=== PATIENT | female | born 1960 | race Caucasian/White ===

== ENCOUNTER 2019-12-23 08:50 | Emergency (ER) | payer OTHER, SELFPAY ==
[2019-12-23 09:10] VITALS: BP 160/86; PULSE 73; RESP 19; TEMP 36.7; O2SAT 97; BMI 31.0
--- NOTE | 2019-12-23 09:43 | ED_ITS ---
HPI - Ear Problem General Chief complaint: Ear Stated complaint: both ears hurt/swims x2 days Time Seen by Provider: 12/23/19 09:17 Source: patient Mode of arrival: Ambulatory Limitations: no limitations History of Present Illness HPI Narrative: CC: Bilateral earaches HPI: The patient is a 59-year-old female who states that she has a spot full and that she has been swimming daily for the last 8 days. She states that she believes she has developed swimmer's ear with pain in her ears, left greater than right. She states that since Tuesday the last 2 tonight's she has been up unable to sleep because of pain and discomfort. She states that her ears feel as though they are swollen and water in her ears. She has had muffling hand decreased hearing. She denies any other sore throat or pain on swallowing. She has had no nasal congestion. She denies any significant allergies, nausea or vomiting. Her pain and discomfort is 5 to 7/10 in intensity. She has had no vertigo or dizziness. She has had no cough shortness breath or chest pain. She has had no abdominal pain. Related Data Previous Rx's Medication Instructions Recorded prednisone 40 mg PO AMCC 5 Days #0 tab 11/28/16 phenazopyridine [Pyridium] 200 mg PO TID #6 tab 11/30/16 sulfamethoxazole-trimethoprim 1 tab PO BID #10 tab 11/30/16 cyclobenzaprine 10 mg tablet See Rx Instructions PO TID PRN #30 09/24/19 tab ketorolac 10 mg PO Q6H PRN 5 Days tab 12/23/19 ofloxacin 3 - 5 drop EAR-BOTH BID 5 Days #10 12/23/19 ml tramadol [Ultram] 50 mg PO TID PRN #10 tab 12/23/19 Allergies Allergy/AdvReac Type Severity Reaction Status Date / Time morphine Allergy Mild HIVES, Verified 12/23/19 09:46 PRURITIS,URTICARIA Review of Systems Review of Systems Narrative: The patient's review of systems were all negative except for those m entioned in the history of present illness. Patient History Social History Smoking Status: Never smoker Smoking Status: Never smoker alcohol intake frequency: holidays/special occasions only Substance Use Type: does not use Exam Narrative Exam Narrative: PHYSICAL EXAM: CONSTITUTIONAL: Awake, Alert, Oriented, Coherent, Cooperative in NAD. Does not appear toxic or ill. HEAD: AT/NC EENT: PERRL, FROM of eyes, no discharge, no nystagmus EARS:No drainage from the ears, tympanic membranes are intact bilaterally. The right tympanic membrane is all quite with no light reflex. The distal external auditory canal is erythematous white and macerated. There is minimal tenderness to palpation over the tragus and tugging of the right auricle. Tugging of the left auricle causes pain and discomfort as well as palpation of the tragus causes significant pain and discomfort. The external auditory canal is swollen. Tympanic membrane is intact and appears quite in macerated. The external auditory canal is moist macerated and consistent with otitis externa. NOSE:No epistaxis or nasal drainage MOUTH:Oral mucosa is moist and pink, posterior pharynx is without erythema or exudate. NECK: Supple, no obvious JVD, Trachea is midline without stridor, no palpable LN. There is no tenderness to palpate over either mastoid processes pre or postauricular lymph nodes or anterior cervical chain and submandibular chain. SPINE: Palpationof the cervical, Thoracic, Lumbar or Sacral spine reveals no gross deformity or tenderness. No CVA tenderness. THORAX: No deformity, chest wall tenderness. LUNGS: Clear, symmetrical breath sounds without respiratory distress. HEART: Normal heart tones, regular rhythm and rate without murmur. ABDOMEN: Soft, non-tender, NEURO: Awake, alert, oriented, conversive, cranial nerves II-XII are symmetrical , moves all 4 extremities and is ambulatory. MENTAL HEALTH: Does not appear anxious or depressed. Initial Vital Signs Initial Vital Signs: Vital Signs Temperature 98.0 F 12/23/19 09:10 Pulse Rate 73 12/23/19 09:10 Respiratory Rate 19 12/23/19 09:10 Blood Pressure 160/86 H 12/23/19 09:10 Pulse Oximetry 97 12/23/19 09:10 Course Orders Ordered: Discontinued Medications Ketorolac Tromethamine (Toradol) 30 mg IM NOW ONE Stop: 12/23/19 09:35 Last Admin: 12/23/19 09:47 Dose: 30 mg Documented by: NEREYDA Ofloxacin (Floxin 0.3% Otic) 5 drops EAR-BOTH NOW ONE Stop: 12/23/19 09:35 Last Admin: 12/23/19 09:56 Dose: 5 drops Documented by: NEREYDA Vital Signs Vital signs: Vital Signs - 8 hr 12/23/19 09:10 Temperature 98.0 F Pulse Rate 73 Respiratory Rate 19 Blood Pressure 160/86 H Pulse Oximetry 97 Discharge Plan Departure Patient Disposition: Home Clinical Impression: Otalgia, bilateral Otitis externa Qualifiers: Otitis externa type: swimmer's ear Chronicity: acute Laterality: bilateral Qualified Code(s): H60.333 - Swimmer's ear, bilateral Discharge Date/Time: 12/23/19 10:08 Instructions: DI for Otitis Externa Activity Restrictions/Additional Instructions: 1. Follow-up with your primary care physician in 48-72 hours. 2. Apply the ear drops to your ears as prescribed for the next 5 days. Or until the ear pain results. 3. Use the Toradol 10 mg tablets every 6 hours for pain and discomfort. 4. Use the Ultram 50 mg 3 times a day as needed for a a rescue medication when the pain becomes so intolerable especially when trying to sleep at night. 5. If you develop worsening pain, fever, headache, feeling faint, progressive dizziness or disequilibrium you need to be re-evaluated. Prescriptions: New ofloxacin 0.3 % drops 3 - 5 drop EAR-BOTH BID 5 Days Qty: 10 RF: 0 ketorolac 10 mg tablet 10 mg PO Q6H PRN (Reason: pain) 5 Days RF: 0 tramadol [Ultram] 50 mg tablet 50 mg PO TID PRN (Reason: pain) Qty: 10 RF: 0 No Action prednisone 20 MG tablet 40 mg PO AMCC 5 Days Qty: 0 RF: 0 phenazopyridine [Pyridium] 200 MG tablet 200 mg PO TID Qty: 6 RF: 0 sulfamethoxazole-trimethoprim 800 MG/160 MG tablet 1 tab PO BID Qty: 10 RF: 0 cyclobenzaprine 10 mg tablet See Rx Instructions PO TID PRN (Reason: muscle spasm) Qty: 30 RF: 0 Referrals: Alonzo Fung MD [Primary Care Provider] -
[2019-12-23] MEDS: KETOROLAC 60 MG/2 ML VIAL 30 MG IM (09:47)
[2019-12-23] MEDS: OFLOXACIN 0.3% OTIC 5 ML 5 DROPS EAR-BOTH (09:56)
[2019-12-23 10:07] VITALS: BP 149/92; PULSE 65; RESP 16; O2SAT 97
== END 2019-12-23 10:08 | disposition home or self-care (01) ==
PROVIDERS: Emergency Provider Emergency Medicine; Family Provider Family Medicine; PCP Family Medicine
DX: H92.03 Otalgia, bilateral (principal); H60.333 Swimmer's ear, bilateral
CPT/HCPCS: 96372; 99283; J1885

== ENCOUNTER 2022-04-29 15:16 | Observation (INO) | payer OTHER, SELFPAY ==
[2022-04-29] VITALS (24 sets, daily range): BP systolic 136–201; BP diastolic 66–117; PULSE 54–72; RESP 16–33; TEMP 36.5–36.6; O2SAT 94–99; BMI 29.0; BMI 34.9
--- NOTE | 2022-04-29 16:02 | DI.RAD.S_ITS ---
PROCEDURE: XR CHEST 1V INDICATIONS: chest pain TECHNIQUE: One view of the chest was acquired. COMPARISON: [facility], , CHEST 2 VIEW, 01/29/2011, 16:06. FINDINGS: Surgical changes and devices: Cholecystectomy clips. Lungs and pleura: Lungs are clear. No pleural effusions or pneumothorax. Mediastinum: Mediastinal contours appear normal. Heart size is normal. Bones and chest wall: No suspicious bony lesions. Overlying soft tissues appear unremarkable. IMPRESSION: No acute cardiopulmonary abnormality. Dictated by: Chente Landin M.D. on 04/29/2022 at 18:07 Approved by: Chente Landin M.D. on 04/29/2022 at 18:08
[2022-04-29 16:25] LABS: Add Manual Diff / Slide Review NO; Basophils Absolute Auto 100 /uL (0-100); Basophils Percent Auto 1.5 % (0-2); Eosinophils Absolute Auto 200 /uL (0-450); Eosinophils Percent Auto 2.2 % (2-4); Hematocrit 43.9 % (36-46); Hemoglobin 15.1 g/dL (12.0-16.0); Lymphocytes Absolute Auto 3100 /uL (1100-4500); Lymphocytes Percent Auto 33.4 % (25-40); Mean Corpuscular HGB Conc 34.5 % (30-36); Mean Corpuscular Hemoglobin 29.6 PG (26-34); Mean Corpuscular Volume 85.8 fL (80-100); Monocytes Absolute Auto 600 /uL (0-900); Monocytes Percent Auto 6.5 % (3-14); Neutrophils Absolute Auto 5300 /uL (1500-7000); Neutrophils Percent Auto 56.4 % (50-75); Platelet Count 196 X10^3/uL (150-400); Red Blood Cell Count 5.11 X10^6/uL (4.0-5.2); Red Cell Distribution Width 12.9 % (11.6-14.8); White Blood Cell Count 9.4 X10^3/uL (4.5-11.0)
[2022-04-29 16:40] LABS: Alanine Aminotransferase 36 IU/L (<35); Albumin Globulin Ratio 1.1 (1.0-2.8); Alkaline Phosphatase 82 U/L (38-126); Aspartate Aminotransferase 36 IU/L (14-36); BUN Creatinine Ratio 22.6 (6-22); Bilirubin Total 0.4 mg/dL (0.2-1.3); Blood Urea Nitrogen 14 mg/dL (7-17); Carbon Dioxide 28 mmol/L (22-32); Chloride 100 mmol/L (98-107); Creatine Kinase 57 U/L (30-135); Estimated Glomerular Filt Rate > 60 mL/min (>60); Globulin 3.7 g/dL (1.7-4.1); Glucose 222 mg/dL (80-110); HEMOLYSIS 18 (0-50); Lipase 107 U/L (23-300); Magnesium 1.7 mg/dL (1.6-2.3); Potassium 4.4 mmol/L (3.4-5.1); Sodium 137 mmol/L (137-145); Total Protein 7.7 g/dL (6.3-8.2)
[2022-04-29 16:50] LABS: Troponin I < 0.012 ng/mL (0.01-0.034)
--- NOTE | 2022-04-29 19:01 | ED_ITS ---
HPI - Chest Pain General Chief Complaint: Chest Pain Stated Complaint: CHEST PAIN Time Seen by Provider: 04/29/22 18:04 Source: patient and family Mode of arrival: Family Vehicle Limitations: no limitations History of Present Illness HPI narrative: Patient here with . Has had off and on left-sided chest pressure discomfort for the past 2 months but worsening in the past 2 weeks and worsened last 2 days. Feels short of breath. No nausea or sweating. It occurs at rest as well as with exertion. Never had stress test in the past. Does not smoke. Last time she saw primary care Dr. Fung was 5 years ago. However since then has retired. Patient did call office to make appointment and is not available until 2 more weeks. Is not on any medications. No primary family history of coronary artery disease. At worse 6/10 chest discomfort. Currently 10/11. Related Data Home Medications Medication Instructions Recorded Confirmed No Known Home Medications 04/29/22 04/29/22 Allergies Allergy/AdvReac Type Severity Reaction Status Date / Time morphine Allergy Mild HIVES, Verified 04/29/22 16:02 PRURITIS,URTICARIA Review of Systems Review of Systems Narrative: GENERAL: Denies chills, fatigue, malaise, fever, sweats. HEENT: Denies sinus pain, ear pain, sore throat RESPIRATORY: Positive dyspnea, negative cough CARDIOVASCULAR: Positive chest pain, negative palpitations GASTROINTESTINAL: Denies nausea, vomiting, abdominal pain : Denies dysuria, frequency, hematuria MUSCULOSKELETAL: denies muscle or bony pain SKIN: Denies rash, skin lesions NEUROLOGIC: Denies weakness, numbness ROS Unobtainable: All systems reviewed & are unremarkable except as noted in HPI and below Patient History Social History household members: spouse Smoking Status: Never smoker alcohol intake: current Smoking Status: Never smoker alcohol intake frequency: holidays/special occasions only Substance Use Type: does not use Exam Narrative Exam Narrative: GENERAL: in no distress, not toxic not dyspneic HEAD: Normocephalic. EYES: Pupils equal round No scleral icterus. ENT: Mucous membranes moist. NECK: Trachea midline. CARDIOVASCULAR: Regular rate and rhythm without murmurs RESPIRATORY: Clear to auscultation. Breath sounds equal bilaterally. No wheezes, rales, or rhonchi. GASTROINTESTINAL: Abdomen soft, non-tender EXTREMITIES: No gross deformities. BACK: No flank tenderness. NEURO: AOx4. SKIN: Warm and dry PSYCH: Not anxious, is cooperative Initial Vital Signs Initial Vital Signs: Vital Signs Temperature 97.7 F 04/29/22 15:50 Pulse Rate 62 04/29/22 15:50 Respiratory Rate 20 04/29/22 15:50 Blood Pressure 181/117 H 04/29/22 15:50 Pulse Oximetry 98 04/29/22 15:50 Oxygen Delivery Method 04/29/22 15:50 Course Course Course Narrative: No new issues during course of stay Decision to Admit Date: 04/29/22 Decision to Admit time: 19:04 Orders Ordered: ED Orders 04/29/22 16:02 XR chest 1V Stat EKG-12 Lead Stat 04/29/22 16:12 Complete Blood Count AUTO DIFF Stat Comprehensive Metabolic Panel Stat Lipase Stat Lipid Panel Urgent Magnesium Stat Troponin & CK Cardiac Panel Stat 04/29/22 19:10 COVID19 -Nasal RAPID/Pre-Proc Stat 04/29/22 23:00 Troponin I Q6H 04/30/22 05:00 Troponin I Q6H Acetaminophen (Acetaminophen 325 Mg Tablet) 650 mg PO Q6H PRN PRN Reason: Fever/Mild Pain (1-3) Aspirin (Aspirin Ec 81 Mg Tablet) 81 mg PO DAILY ADWOA Enoxaparin Sodium (Enoxaparin 40 Mg/0.4 Ml Syringe) 40 mg SUBCUT DAILY ADWOA Morphine Sulfate (Morphine 2 Mg/Ml Inj) 2 mg IV Q5MIN PRN PRN Reason: Chest Pain Naloxone HCl (Naloxone 0.4 Mg/Ml Vial) 0.2 mg IV Q2MIN PRN PRN Reason: Opiate Reversal Nitroglycerin (Nitroglycerin 0.4 Mg Sl Tab) 0.4 mg SL [id number] PRN PRN Reason: Chest Pain Ondansetron HCl (Ondansetron 4 Mg Odt) 4 mg PO Q8HR PRN PRN Reason: Nausea And Vomiting Discontinued Medications Aspirin (Aspirin 81 Mg Chew Tab) 324 mg PO NOW ONE Stop: 04/29/22 19:01 Last Admin: 04/29/22 19:09 Dose: 324 mg Documented By: DAVID Sodium Chloride (Normal Saline 0.9%) 1,000 mls @ 1,000 mls/hr IV BOLUS ONE Stop: 04/29/22 20:54 Last Infusion: 04/29/22 21:31 Dose: 0 mls/hr Documented By: Admin: 04/29/22 20:18 Dose: 1,000 mls/hr Documented By: DAVID Nitroglycerin (Nitroglycerin Oint 1 Inch/Gm Oint...G.) 0.5 inch TOP NOW ONE Stop: 04/29/22 19:01 Last Admin: 04/29/22 19:16 Dose: 0.5 inch Documented By: DAVID Reevaluation(s) Reevaluation #1: Reviewed with patient and results. They agree for admission for stress test and echocardiogram. Time: 19:04 Reevaluation #2: Chest pain-free after nitro paste. Has a little blurry vision but no headache. IV fluids ordered. Time: 19:56 Consultations Consultation #1: Spoke with hospitalist, Babs Gonsales, will admit patient Time: 19:56 Vital Signs Vital signs: Vital Signs - 8 hr 04/29/22 15:50 04/29/22 17:52 04/29/22 17:53 Temperature 97.7 F 97.8 F Pulse Rate 62 58 L Respiratory Rate 20 19 Blood Pressure 181/117 H 161/78 H Pulse Oximetry 98 98 Oxygen Delivery Method Room Air 04/29/22 17:53 04/29/22 19:16 04/29/22 18:00 Temperature Pulse Rate 59 L 62 Respiratory Rate 16 Blood Pressure 201/87 H 155/77 H Pulse Oximetry 99 Oxygen Delivery Method 04/29/22 18:00 04/29/22 18:30 04/29/22 19:00 Temperature Pulse Rate 67 57 L 65 Respiratory Rate 20 33 H Blood Pressure Pulse Oximetry 98 98 99 Oxygen Delivery Method Room Air Room Air Room Air 04/29/22 19:17 04/29/22 19:17 04/29/22 19:20 Temperature Pulse Rate 56 L 59 L Respiratory Rate 18 21 Blood Pressure 201/87 H Pulse Oximetry 97 98 Oxygen Delivery Method Room Air Room Air 04/29/22 19:20 04/29/22 19:26 04/29/22 19:26 Temperature Pulse Rate 62 Respiratory Rate 25 H Blood Pressure 197/88 H 184/80 H Pulse Oximetry 96 Oxygen Delivery Method Room Air 04/29/22 19:30 04/29/22 19:30 04/29/22 19:36 Temperature Pulse Rate 68 Respiratory Rate 22 Blood Pressure 159/70 H 153/70 H Pulse Oximetry 97 Oxygen Delivery Method Room Air 04/29/22 19:36 04/29/22 19:41 04/29/22 19:41 Temperature Pulse Rate 54 L 54 L Respiratory Rate 18 24 Blood Pressure 152/67 H Pulse Oximetry 97 96 Oxygen Delivery Method Room Air Room Air 04/29/22 19:45 04/29/22 19:45 04/29/22 19:50 Temperature Pulse Rate 55 L 55 L Respiratory Rate 24 Blood Pressure 138/66 Pulse Oximetry 97 97 Oxygen Delivery Method Room Air Room Air 04/29/22 19:50 04/29/22 19:55 04/29/22 19:55 Temperature Pulse Rate 55 L Respiratory Rate 24 Blood Pressure 151/72 H 136/67 Pulse Oximetry 97 Oxygen Delivery Method Room Air MDM - Chest Pain Differential Diagnosis Differential diagnosis: Likely stable angina, unstable angina pectoris, atypical chest pain, st elevation myocardial infarction and chest pain Lab Data Result diagrams: 04/29/22 16:12 04/29/22 16:12 Labs: Lab Results 04/29/22 04/29/22 04/29/22 Range/Units 16:12 16:12 16:12 WBC 9.4 (4.5-11.0) X10^3/uL RBC 5.11 (4.0-5.2) X10^6/uL Hgb 15.1 (12.0-16.0) g/dL Hct 43.9 (36-46) % MCV 85.8 (80-100) fL MCH 29.6 (26-34) PG MCHC 34.5 (30-36) % RDW 12.9 (11.6-14.8) % Plt Count 196 (150-400) X10^3/uL Neut % (Auto) 56.4 (50-75) % Lymph % (Auto) 33.4 (25-40) % [place] % (Auto) 6.5 (3-14) % Eos % (Auto) 2.2 (2-4) % Baso % (Auto) 1.5 (0-2) % Neut # (Auto) 5300 (4307-1646) /uL Lymph # (Auto) 3100 (0348-0280) /uL [place] # (Auto) 600 (0-900) /uL Eos # (Auto) 200 (0-450) /uL Baso # (Auto) 100 (0-100) /uL Sodium 137 (137-145) mmol/L Potassium 4.4 (3.4-5.1) mmol/L Chloride 100 (98-107) mmol/L Carbon Dioxide 28 (22-32) mmol/L BUN 14 (7-17) mg/dL Creatinine 0.62 (0.52-1.04) mg/dL Estimated GFR > 60 (>60) mL/min BUN/Creatinine Ratio 22.6 H (6-22) Glucose 222 H (80-110) mg/dL Hemoglobin A1c (4.0-6.0) % Calcium 9.0 (8.4-10.2) mg/dL Magnesium 1.7 (1.6-2.3) mg/dL Total Bilirubin 0.4 (0.2-1.3) mg/dL AST 36 (14-36) IU/L ALT 36 H (<35) IU/L Alkaline Phosphatase 82 (38-126) U/L Total Creatine Kinase 57 (30-135) U/L CK-MB (CK-2) TNP CK-MB (CK-2) Rel Index TNP Troponin I < 0.012 (0.01-0.034) ng/mL NT-Pro-B Natriuret Pep (<125) pg/mL Total Protein 7.7 (6.3-8.2) g/dL Albumin 4.0 (3.5-5.0) g/dL Globulin 3.7 (1.7-4.1) g/dL Albumin/Globulin Ratio 1.1 (1.0-2.8) Triglycerides 146 (35-150) mg/dL Cholesterol 192 (140-199) mg/dL LDL Cholesterol, Calc 112 H (<100) mg/dL HDL Cholesterol 51 (40-60) mg/dL Lipase 107 (23-300) U/L Urine Color Urine Appearance Urine pH (4.5-8.0) Ur Specific [place] (1.000-1.035) Urine Protein (Negative) Urine Glucose (UA) (Negative) g/dL Urine Ketones (NEGATIVE) Urine Occult Blood (Negative) Urine Nitrate (Negative) Urine Bilirubin (NEGATIVE) Urine Urobilinogen (0.2) E.U./dL Ur Leukocyte Esterase (NEGATIVE) Urine RBC (0-5/HPF) Urine WBC (0-5/HPF) Urine Bacteria (None) Ur Culture Indicated? SARS-CoV-2 (PCR) (Negative) 04/29/22 04/29/22 04/29/22 Range/Units 16:12 16:12 19:10 WBC (4.5-11.0) X10^3/uL RBC (4.0-5.2) X10^6/uL Hgb (12.0-16.0) g/dL Hct (36-46) % MCV (80-100) fL MCH (26-34) PG MCHC (30-36) % RDW (11.6-14.8) % Plt Count (150-400) X10^3/uL Neut % (Auto) (50-75) % Lymph % (Auto) (25-40) % [place] % (Auto) (3-14) % Eos % (Auto) (2-4) % Baso % (Auto) (0-2) % Neut # (Auto) (6386-0997) /uL Lymph # (Auto) (6170-4784) /uL [place] # (Auto) (0-900) /uL Eos # (Auto) (0-450) /uL Baso # (Auto) (0-100) /uL Sodium (137-145) mmol/L Potassium (3.4-5.1) mmol/L Chloride (98-107) mmol/L Carbon Dioxide (22-32) mmol/L BUN (7-17) mg/dL Creatinine (0.52-1.04) mg/dL Estimated GFR (>60) mL/min BUN/Creatinine Ratio (6-22) Glucose (80-110) mg/dL Hemoglobin A1c 10.2 H (4.0-6.0) % Calcium (8.4-10.2) mg/dL Magnesium (1.6-2.3) mg/dL Total Bilirubin (0.2-1.3) mg/dL AST (14-36) IU/L ALT (<35) IU/L Alkaline Phosphatase (38-126) U/L Total Creatine Kinase (30-135) U/L CK-MB (CK-2) CK-MB (CK-2) Rel Index Troponin I (0.01-0.034) ng/mL NT-Pro-B Natriuret Pep 234 H (<125) pg/mL Total Protein (6.3-8.2) g/dL Albumin (3.5-5.0) g/dL Globulin (1.7-4.1) g/dL Albumin/Globulin Ratio (1.0-2.8) Triglycerides (35-150) mg/dL Cholesterol (140-199) mg/dL LDL Cholesterol, Calc (<100) mg/dL HDL Cholesterol (40-60) mg/dL Lipase (23-300) U/L Urine Color Urine Appearance Urine pH (4.5-8.0) Ur Specific [place] (1.000-1.035) Urine Protein (Negative) Urine Glucose (UA) (Negative) g/dL Urine Ketones (NEGATIVE) Urine Occult Blood (Negative) Urine Nitrate (Negative) Urine Bilirubin (NEGATIVE) Urine Urobilinogen (0.2) E.U./dL Ur Leukocyte Esterase (NEGATIVE) Urine RBC (0-5/HPF) Urine WBC (0-5/HPF) Urine Bacteria (None) Ur Culture Indicated? SARS-CoV-2 (PCR) Negative (Negative) 04/29/22 Range/Units 19:20 WBC (4.5-11.0) X10^3/uL RBC (4.0-5.2) X10^6/uL Hgb (12.0-16.0) g/dL Hct (36-46) % MCV (80-100) fL MCH (26-34) PG MCHC (30-36) % RDW (11.6-14.8) % Plt Count (150-400) X10^3/uL Neut % (Auto) (50-75) % Lymph % (Auto) (25-40) % [place] % (Auto) (3-14) % Eos % (Auto) (2-4) % Baso % (Auto) (0-2) % Neut # (Auto) (1304-5671) /uL Lymph # (Auto) (4535-8146) /uL [place] # (Auto) (0-900) /uL Eos # (Auto) (0-450) /uL Baso # (Auto) (0-100) /uL Sodium (137-145) mmol/L Potassium (3.4-5.1) mmol/L Chloride (98-107) mmol/L Carbon Dioxide (22-32) mmol/L BUN (7-17) mg/dL Creatinine (0.52-1.04) mg/dL Estimated GFR (>60) mL/min BUN/Creatinine Ratio (6-22) Glucose (80-110) mg/dL Hemoglobin A1c (4.0-6.0) % Calcium (8.4-10.2) mg/dL Magnesium (1.6-2.3) mg/dL Total Bilirubin (0.2-1.3) mg/dL AST (14-36) IU/L ALT (<35) IU/L Alkaline Phosphatase (38-126) U/L Total Creatine Kinase (30-135) U/L CK-MB (CK-2) CK-MB (CK-2) Rel Index Troponin I (0.01-0.034) ng/mL NT-Pro-B Natriuret Pep (<125) pg/mL Total Protein (6.3-8.2) g/dL Albumin (3.5-5.0) g/dL Globulin (1.7-4.1) g/dL Albumin/Globulin Ratio (1.0-2.8) Triglycerides (35-150) mg/dL Cholesterol (140-199) mg/dL LDL Cholesterol, Calc (<100) mg/dL HDL Cholesterol (40-60) mg/dL Lipase (23-300) U/L Urine Color Yellow Urine Appearance Sl cloudy Urine pH 6.0 (4.5-8.0) Ur Specific [place] 1.015 (1.000-1.035) Urine Protein Negative (Negative) Urine Glucose (UA) Trace H (Negative) g/dL Urine Ketones Negative (NEGATIVE) Urine Occult Blood Trace-intact (Negative) Urine Nitrate Positive H (Negative) Urine Bilirubin Negative (NEGATIVE) Urine Urobilinogen 0.2 (0.2) E.U./dL Ur Leukocyte Esterase 1+ H (NEGATIVE) Urine RBC 5-10/hpf H (0-5/HPF) Urine WBC 5-10/hpf H (0-5/HPF) Urine Bacteria Many (>30) H (None) Ur Culture Indicated? Specimen cultured SARS-CoV-2 (PCR) (Negative) Imaging Data Chest x-ray: Radiologist's Impression: [address] [id number] ReportSigned Patient: Katelyn Pascal CMR#: [id number]: [id number]:[id number]/Sex: 62 / FDate of Service: 04/29/22Loc: EDAccession Number: [id number] Procedure: XR chest 1V Ordering Provider: Isabel Hyde D.O. PROCEDURE: XR CHEST 1V INDICATIONS: chest pain TECHNIQUE: One view of the chest was acquired. COMPARISON: [facility], CHEST 2 VIEW, 01/29/2011, 16:06. FINDINGS: Surgical changes and devices: Cholecystectomy clips. Lungs and pleura: Lungs are clear. No pleural effusions or pneumothorax. Mediastinum: Mediastinal contours appear normal. Heart size is normal. Bones and chest wall: No suspicious bony lesions. Overlying soft tissues appear unremarkable. IMPRESSION: No acute cardiopulmonary abnormality. Dictated by: Chente Landin M.D. on 04/29/2022 at 18:07 Approved by: Chente Landin M.D. on 04/29/2022 at 18:08 ECG Data Interpretation: Normal sinus rhythm rate [address] elevation or depression MDM Narrative Medical decision making narrative: Appropriate for admission, patient has worsening and increased frequency chest discomfort. Not able see primary care until 2 weeks. Instructed to come here if worsening symptoms. Never had stress test before. Patient and agree for admission and stress test. Review with hospitalist and will admit patient Discharge Plan Departure Patient Disposition: Admitted as Observation Clinical Impression: Chest pain Admit Date/Time: 04/29/22 19:56 Admit Provider: Babs Gonsales
[2022-04-29] MEDS: ASPIRIN 81 MG CHEW TAB 324 MG PO (19:09)
[2022-04-29] MEDS: NITROGLYCERIN OINT 1 INCH/GM OINT...G. 0.5 INCH TOP (19:16)
--- NOTE | 2022-04-29 19:46 | CM.DANOTE ---
Pt is a 62 year old female who presents with tightness in chest. Pt has [facility] insurance. Pt is fully independent at baseline and no case management needs identified at this time. Plan: SW will continue to follow to await dc recommendation and make appropriate referrals, if needed. ELY Neumann Discharge Planning/Care Management CM Discharge Assessment Start: 04/29/22 19:44 Freq: Status: Active Protocol: Document 04/29/22 19:44 TM (Rec: 04/29/22 19:46 TM [id number]) Discharge Planning Assessment Assigned Paperboard Boxes Estimator ELY Neumann DPOA/Assigned Designee Name N/A - LNOK is , Arm[place] Advance Directives? No Advance Directives on File No History Provided By Patient Has Patient been admitted in last 30 No days? Prior Living Arrangements House Comment Pt lives in two story house with her , Armando. House has 5 stairs to enter in front. Household Members spouse Type of transporation used prior to Drives own vehicle admit Independent with ADL's Yes Is patient alert and oriented? Yes Caregiver for Another No Comment Pt is fully independent with ADLs; does not use any DME. 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 Additional Comment TBD Please Provide Date Initial DC 04/29/22 Assessment Was Performed
[2022-04-29 19:48] LABS: COVID19 -Nasal RAPID Negative (Negative)
--- NOTE | 2022-04-29 19:58 | DI.ECHO.S_ITS ---
[facility] +---------+ : : [address] : : : : [id number] : : : : Phone: [phone] Echocardiogram Report + + :Name: KELLIE CARSON Study Date: 04/30/2022 Height: 67 in : :[facility] ReadingLocation: Weight: 185 lb : : Gender: Female BSA: 2.0 m2 : :: 1960 Age: 62 yrs BP: 135/70 mmHg: :Reason For Study: Chest pain : :Ordering Physician: RICK, : :JEREMIAH Performed By: Matthew Vick : :Referring: JEREMIAH CABRERA : + + Interpretation Summary The left ventricle is normal in size and wall thickness. Left ventricular systolic function is normal. The ejection fraction is estimated to be 55-60%. On parasternal short-axis there is mild hypokinesis along the basal to mid inferior segments. Diastolic parameters suggest a relaxation abnormality of the left ventricle, consistent with probable normal filling pressures. The right ventricle is normal in size and function. Pulmonary artery pressures cannot be estimated because of the lack of a measurable TR jet velocity. Both atria are normal in size. There is no significant valvular heart disease. The aortic root is normal size. Findings might suggest ischemic heart disease. Clinical correlation is recommended. Procedure: A two-dimensional transthoracic echocardiogram with color flow and Doppler was performed. The study quality was technically adequate. There is no prior echocardiogram noted for this patient. Left Ventricle: The left ventricle is normal in size and wall thickness. Left ventricular systolic function is normal. The ejection fraction is estimated to be 55-60%. On parasternal short-axis there is mild hypokinesis along the basal to mid inferior segments. Diastolic parameters suggest a relaxation abnormality of the left ventricle, consistent with probable normal filling pressures. Right Ventricle: The right ventricle is normal in size and function. Atria: Both atria are normal in size. Chiari network (normal variant) is noted. The interatrial septum grossly appears intact with no obvious evidence for an atrial septal defect. Mitral Valve: The mitral valve leaflets are slightly calcified. There is trace mitral regurgitation. Aortic Valve: The aortic valve is normal in structure and function. There is trace aortic regurgitation. Tricuspid Valve: The tricuspid valve is normal in structure and function. No tricuspid regurgitation. Pulmonary artery pressures cannot be estimated because of the lack of a measurable TR jet velocity. Pulmonic Valve: The pulmonic valve is normal in structure and function. There is trace pulmonic regurgitation. There is no significant valvular heart disease. Great Vessels: The aortic root is normal size. The dimensions of the ascending aorta are normal. The IVC is of normal diameter and collapses greater than 50% with a sniff. This suggests a low right atrial pressure of 3 mm Hg. Pericardium/ Pleura There is no pericardial effusion. There is no pleural effusion. MMode/2D Measurements & Calculations LVIDd: 4.4 cm LVOT diam: 2.3 cm LVIDs: 3.0 cm Ao root diam: 3.1 cm FS: 31.7 % asc Aorta Diam: 3.3 cm IVSd: 1.0 cm LVPWd: 0.78 cm LV garcia. diameter/BSA (cm/m^2): 2.3 LV sys. diameter/BSA (cm/m^2): 1.5 LA A2 area: 20.3 cm2 RA long axis: 4.8 cm LA A4 area: 20.5 cm2 RA area: 11.8 cm2 LA length (vol): 5.8 cm RA vol: 24.7 ml LA vol: 61.1 ml RA : 12.6 ml/m2 LA vol index: 31.2 ml/m2 TAPSE: 2.1 cm Doppler Measurements & Calculations Ao V2 max: 133.2 cm/sec LVOT Max Renard: 99.2 cm/sec Ao V2 mean: 90.8 cm/sec LV V1 max P.9 mmHg Ao max P.1 mmHg LV V1 VTI: 22.6 cm Ao mean P.7 mmHg HARLEY(I,D): 3.4 cm2 Ao V2 VTI: 26.4 cm HARLEY(V,D): 3.0 cm2 sev ratio: 0.85 HARLEY indexed to BSA (cm^2/m^2): 1.7 MV E max renard: 72.8 cm/sec SV(LVOT): 90.4 ml MV A max renard: 93.4 cm/sec MV E/A: 0.78 Med Peak E' Renard: 6.9 cm/sec E/E' med: 10.6 Lat Peak E' Renard: 8.6 cm/sec E/E' lat: 8.5 E/e' average: 9.6 MV dec time: 0.19 sec Reading Physician:09:27 AM
--- NOTE | 2022-04-29 20:00 | PC.NURSE ---
Pts pain from 4 to a 1 after ntg. Pt also having some blurred vision. Dr Moscoso aware,ordered ns bolus.
--- NOTE | 2022-04-29 20:17 | PM.HP.1 ---
History of Present Illness History of Present Illness Date Patient Seen: 04/29/22 Time Patient Seen: 20:17 Chief complaint: CHEST PAIN Narrative: Katelyn Pascal is a 62-year-old female with no known medical history, takes no medications who presented to the ED with complaining of off and on upper left-sided diffuse, non radiating, chest pressure discomfort for the past 2 months, worsened last 2 days increaing in frequency. Pain occurs both at rest and with exertion, is able to press and reproduce pain with palpation, has not noted anything that resolves pain, has associated headache, has noted some mild changes vision, last eye appointment on October 2021 normal, no diaphoresis, no abdominal pain, nausea, vomiting or syncope, notes mild shortness of breath at comes and goes.? Patient denies any cardiovascular history, and has no previous cardiovascular workup or risk stratification. Denies history of any respiratory disorder, PEs or DVT. Chest pressure ranges from 4-6/10. Patient is a nonsmoker denies previous history, drinks alcohol very rarely couple times a year, denies any use of recreational substances, has been swimming in a lap pool, regular exercise over the past 10 months and has lost 25 lb. Patient notes she always has increased intake of fluids, has noted increased urinary frequency, nocturia x2 nightly, denies dysuria, urgency. Last time she saw primary care Dr. Fung was 5 years ago.? However since then has retired.? Patient did call office to make appointment and is not available until 2 more weeks.? Patient lives with her , 2 sons and a [id number], works in a post office, a regular level of stress no recent changes. In ED patient presented blood pressure is 181/117, 201/87, nitro paste was applied and patient was given ASA, repeat blood pressure 161/78. Upon admit patient is anxious but resting comfortably in bed, currently not experiencing chest pressure, denies shortness of breath, denies headache, changes in vision, weakness, numbness, tingling, fever, body aches, chills, abdominal pain, nausea, vomiting, diarrhea, urinary retention, urinary symptoms, upper respiratory symptoms, skin infections, injury, recent illness injury or trauma. Vital signs temp 97.7?, BP 138/66, HR 62, R 20, O2 saturation 99% on room air. Blood pressure recorded last ED visit on 12/22/2020 160/86. Patient's CBC and CMP were within normal limits with the exception of a glucose 222, troponin lipase and magnesium all WNL, chest x-ray is negative for any acute cardiopulmonary process. Patient's EKG NSR rate of 61, without ST or T-wave changes. Patient admitted for chest pain, hypertensive urgency, hyperglycemia. Patient History Medical History (Updated 04/30/22 @ 04:09 by OSMAN Gibson) No pertinent past medical history Surgical History (Updated 04/30/22 @ 04:08 by OSMAN Gibson) History of cholecystectomy History of hysterectomy History of tonsillectomy Family & Social History Family History Mother Recurrent strokes Heart attack Father Hypertension Dementia Social History: household members spouse, 2 sons and [id number], works in post office, exercises regularly swimming in the pool. Prior Living Arrangements House Safety & Behavioral: Feels Safe in Current Yes Environment Been Physically Hurt or No Threatened By a Person Tobacco & Substance use: Smoking Status Never smoker alcohol intake frequency holiday/special occasion Substance Use Type does not use Meds Home Medications and Allergies Home Medications Medication Instructions Recorded Confirmed Type No Known Home Medications 04/29/22 04/29/22 History Allergies Allergy/AdvReac Type Severity Reaction Status Date / Time morphine Allergy Mild HIVES, Verified 04/29/22 16:02 PRURITIS,URTICARIA Review of Systems Review of Systems Narrative: All 12 point systems reviewed with the patient and are negative except otherwise documented. Exam Vital Signs (past 8 hours): - 04/29/22 15:50 04/29/22 17:52 04/29/22 17:53 Temperature 97.7 F 97.8 F Pulse Rate 62 58 L Respiratory Rate 20 19 Blood Pressure 181/117 H 161/78 H Pulse Oximetry 98 98 Oxygen Delivery Method Room Air 04/29/22 17:53 04/29/22 19:16 04/29/22 18:00 Temperature Pulse Rate 59 L 62 Respiratory Rate 16 Blood Pressure 201/87 H 155/77 H Pulse Oximetry 99 Oxygen Delivery Method 04/29/22 18:00 04/29/22 18:30 04/29/22 19:00 Temperature Pulse Rate 67 57 L 65 Respiratory Rate 20 33 H Blood Pressure Pulse Oximetry 98 98 99 Oxygen Delivery Method Room Air Room Air Room Air 04/29/22 19:17 04/29/22 19:17 04/29/22 19:20 Temperature Pulse Rate 56 L 59 L Respiratory Rate 18 21 Blood Pressure 201/87 H Pulse Oximetry 97 98 Oxygen Delivery Method Room Air Room Air 04/29/22 19:20 04/29/22 19:26 04/29/22 19:26 Temperature Pulse Rate 62 Respiratory Rate 25 H Blood Pressure 197/88 H 184/80 H Pulse Oximetry 96 Oxygen Delivery Method Room Air 04/29/22 19:30 04/29/22 19:30 04/29/22 19:36 Temperature Pulse Rate 68 Respiratory Rate 22 Blood Pressure 159/70 H 153/70 H Pulse Oximetry 97 Oxygen Delivery Method Room Air 04/29/22 19:36 04/29/22 19:41 04/29/22 19:41 Temperature Pulse Rate 54 L 54 L Respiratory Rate 18 24 Blood Pressure 152/67 H Pulse Oximetry 97 96 Oxygen Delivery Method Room Air Room Air 04/29/22 19:45 04/29/22 19:45 04/29/22 19:50 Temperature Pulse Rate 55 L 55 L Respiratory Rate 24 Blood Pressure 138/66 Pulse Oximetry 97 97 Oxygen Delivery Method Room Air Room Air 04/29/22 19:50 04/29/22 19:55 04/29/22 19:55 Temperature Pulse Rate 55 L Respiratory Rate 24 Blood Pressure 151/72 H 136/67 Pulse Oximetry 97 Oxygen Delivery Method Room Air 04/29/22 20:00 04/29/22 20:00 Temperature Pulse Rate 56 L Respiratory Rate 19 Blood Pressure 140/75 Pulse Oximetry 96 Oxygen Delivery Method Room Air Oxygen Delivery Method Room Air Narrative Exam Narrative: General: Patient is a well-developed, well-nourished in no distress at this time. HEENT: Normocephalic, atraumatic, extraocular muscles intact, oral pharynx is clear and mucous membranes are moist. Neck is supple and symmetric, trachea is midline, no adenopathy, no thyroid enlargement, nontender, no masses palpated. Negative for JVD Chest: Normal AP diameter and contour without kyphoscoliosis, no nasal flaring, retractions, or tachypneic labored Lungs: Auscultation of all lung oneal are clear without adventitious sounds, wheezes, rhonchi, or rales. Cardio: S1 & S2 with regular rate and rhythm without murmur, rubs, or gallops, no carotid bruit, no cardiac pulsations present. Abdomen: Soft nontender, negative for organomegaly, or masses. Bowel sounds are present in all 4 quadrants without guarding or rebound, no CVA tenderness. Musculoskeletal: Muscle strength and tone are equal within normal limits, no deformity, crepitus, effusions, cyanosis, clubbing or edema present. Full range of motion intact radial and pedal pulses are normal. Skin: Warm dry and intact without rashes, ulcerations or petechiae. Neuro: Alert and orientated x3, strength is +5/5 in all extremities, sensation to touch intact, no gross deficits noted of cranial nerves. Psych: Patient has a well-kept appearance, appropriate affect, mental status attitude thought context and judgment are appropriate for age. Objective Labs Result Diagrams: 04/29/22 16:12 04/29/22 16:12 Labs: Laboratory Results - last 24 hr 04/29/22 04/29/22 04/29/22 16:12 16:12 19:10 WBC 9.4 RBC 5.11 Hgb 15.1 Hct 43.9 MCV 85.8 MCH 29.6 MCHC 34.5 RDW 12.9 Plt Count 196 Neut % (Auto) 56.4 Lymph % (Auto) 33.4 Grainger % (Auto) 6.5 Eos % (Auto) 2.2 Baso % (Auto) 1.5 Neut # (Auto) 5300 Lymph # (Auto) 3100 [place]inger # (Auto) 600 Eos # (Auto) 200 Baso # (Auto) 100 Sodium 137 Potassium 4.4 Chloride 100 Carbon Dioxide 28 BUN 14 Creatinine 0.62 Estimated GFR > 60 BUN/Creatinine Ratio 22.6 H Glucose 222 H Calcium 9.0 Magnesium 1.7 Total Bilirubin 0.4 AST 36 ALT 36 H Alkaline Phosphatase 82 Total Creatine Kinase 57 CK-MB (CK-2) TNP CK-MB (CK-2) Rel Index TNP Troponin I < 0.012 Total Protein 7.7 Albumin 4.0 Globulin 3.7 Albumin/Globulin Ratio 1.1 Lipase 107 SARS-CoV-2 (PCR) Negative Assessment & Plan Assessment & Plan narrative: Katelyn Pascal is a 62-year-old female with no known medical history, takes no medications who presented to the ED with complaining of off and on upper left-sided diffuse, non radiating, chest pressure discomfort for the past 2 months, increased urinary frequency, nocturia, 25 lb intentional weight loss, and headache. Patient observation evaluation new diagnosis of hypertension hyperglycemia new diagnosis of diabetes. Patient requires observational admit for evaluation and diagnosis of hypertension, diabetes, possible hyperlipidemia and initiate appropriate medical management and risk stratification. 1. Hypertensive Urgency, new diagnosis of essential hypertension, acute, present on admission -In ED:181/117, 201/87, nitro paste was applied and patient was given ASA, repeat blood pressure 161/78. - 12/22/2020 160/86. -troponin lipase and magnesium all WNL- Trend troponins and electrolyte, -lipids, BNP ordered -ASA, morphine and nitro as needed for CP -patient on telemetry -chest x-ray is negative for any acute cardiopulmonary process. -EKG NSR rate of 61, without ST or T-wave changes. -initiate lisinopril 10 mg b.i.d.- Nursing to provide up-to-date medication patient information -Provide outpatient B/P log & checking your b/p at home- to complete following d/c to provide to new PCP for evaluation. -patient education handout on hypertension -exercise stress and echo ordered -patient needs to acquire new PCP and follow up within 2 weeks of hospital discharge for evaluation of blood pressure control 2. Hyperglycemia, new diagnosis of type 2 diabetes, acute, present on admission -glucose 222- monitor blood sugars, renal function, and electrolytes -A1C 10.2% -patient admitted under diabetic protocol, glucose checks a.c. HS, low-dose sliding scale -because A1c >9% will initiate Lantus 20 units q.h.s.-nursing to provide up-to-date patient education regarding Lantus, diabetes -patient will need prescription for Accu-Chek, and Lantus on discharge -provided patient initial education regarding diabetes. 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 -dietary consult for diabetes education nutritional lifestyle and exercise changes. 3. Overweight, acute on chronic, present on admission -as evidence by BMI 34.9-patient is overweight status has significant impact on worsening high blood pressure, the development and control of diabetes, also patient highly likely to have hyperlipidemia putting her at significant high risk of cerebrovascular events, cardiovascular events, impaired wound healing and immune compromised. -dietary consult placed for nutritional, lifestyle, exercise, and lifestyle changes. Code status:Full Surrogate decision maker:Armando Pascal Spouse COVID PCR: Negative DVT/VTE prophylaxis:Lovenox & SCD's Disposition: Patient admitted for observation to initiate an established glycemic and blood pressure control, in addition to risk stratification expected length of stay less than 2 midnights. I have utilized all available immediate resources to obtain, update, or review the patient's current medications. I confirmed that the patient's advanced care plan is present, Code status is documented and/or surrogate decision maker is listed in the patient's medical record. Time Spent With Patient Critical Care time: I spent a total of [] minutes of critical care time on this patient's care today; this time is exclusive of procedural time.
[2022-04-29] MEDS: SODIUM CHLORIDE 0.9% 1,000 ML 1000 ML IV (20:18)
[2022-04-29 20:33] LABS: Appearance Urine UA SL CLOUDY; Bilirubin Urine UA NEGATIVE (NEGATIVE); Color Urine UA YELLOW; Glucose Urine UA TRACE g/dL (Negative); Ketones Urine UA NEGATIVE (NEGATIVE); Leukocyte Esterase Urine UA 1+ (NEGATIVE); Nitrite Urine UA POSITIVE (Negative); Occult Blood Urine UA TRACE-INTACT (Negative); Protein Urine UA NEGATIVE (Negative); Specific Gravity Urine UA 1.015 (1.000-1.035); Urobilinogen Urine UA 0.2 E.U./dL (0.2)
[2022-04-29 20:45] LABS: Cholesterol 192 mg/dL (140-199); HDL Cholesterol 51 mg/dL (40-60); LDL Cholesterol Calculated 112 mg/dL (<100); Triglycerides 146 mg/dL (35-150)
[2022-04-29 20:47] LABS: Hemoglobin A1C% w Est Avg Glu 10.2 % (4.0-6.0)
[2022-04-29 21:08] LABS: Bacteria Urine Many (>30); Culture Indicated Urine Specimen Cultured; RBC Urine 5-10/HPF (0-5/HPF); WBC Urine 5-10/HPF (0-5/HPF)
[2022-04-29 21:21] LABS: NT-proBNP (BNP-Adult 18+) 234 pg/mL (<125)
[2022-04-30] VITALS (12 sets, daily range): BP systolic 128–166; BP diastolic 69–82; PULSE 63–76; RESP 16–18; TEMP 36.6–37.3; O2SAT 93–98
[2022-04-30 00:43] LABS: Troponin I < 0.012 ng/mL (0.01-0.034)
--- NOTE | 2022-04-30 05:14 | PC.NURSE ---
Pt brought from ED in wheelchair, SBA to bed. Pt c/o CP coming and going and sharp. Denies SOB, dizzy, N/V. Oriented to room, call light, tv and bed controls. After hospitalist spoke w/ pt about dm2 and htn, pt started crying and stating I am so worried i will not understand any of this. RN educated pt staff will educate pt on everything needed. Bed alarm on, SBA to bathroom.
[2022-04-30] MEDS: ACETAMINOPHEN 325 MG TABLET 650 MG PO ×2 (06:24→21:39)
--- NOTE | 2022-04-30 07:24 | P.PN_ITS ---
Subjective Subjective Date Patient Seen: 04/30/22 Time Patient Seen: 14:00 Interval history: Patient quite anxious about diabetes diagnosis. She still has some chest pain which is worse with palpation. Worried about how she is going to manage her BP and diabetes at home. Worried about her heart. Exam Vital Signs (past 8 hours): - 04/29/22 23:57 04/30/22 00:00 04/30/22 04:30 Temperature 98.4 F 97.9 F Pulse Rate 76 65 Respiratory Rate 18 18 Blood Pressure 166/82 H 135/70 Pulse Oximetry 94 94 96 Oxygen Delivery Method Room Air Oxygen Flow Rate 0 0 Oxygen Delivery Method Room Air Oxygen Flow Rate 0 Narrative Exam Narrative: GEN: no acute distress, tearful HEENT: moist mucous membranes, PERRL NECK: trachea midline, no JVD CV: regular rate and rhythm, no murmurs, left chest pain to palpation PULM: clear bilaterally ABD: soft, nontender, nondistended, no organomegaly EXT: warm and well perfused with no edema NEURO: awake, alert, oriented, no focal deficits Objective Labs Result Diagrams: 04/29/22 16:12 04/30/22 07:41 Labs: Laboratory Results - last 24 hr 04/29/22 04/29/22 04/29/22 16:12 16:12 16:12 WBC 9.4 RBC 5.11 Hgb 15.1 Hct 43.9 MCV 85.8 MCH 29.6 MCHC 34.5 RDW 12.9 Plt Count 196 Neut % (Auto) 56.4 Lymph % (Auto) 33.4 [place] % (Auto) 6.5 Eos % (Auto) 2.2 Baso % (Auto) 1.5 Neut # (Auto) 5300 Lymph # (Auto) 3100 [place] # (Auto) 600 Eos # (Auto) 200 Baso # (Auto) 100 Sodium 137 Potassium 4.4 Chloride 100 Carbon Dioxide 28 BUN 14 Creatinine 0.62 Estimated GFR > 60 BUN/Creatinine Ratio 22.6 H Glucose 222 H Hemoglobin A1c Calcium 9.0 Magnesium 1.7 Total Bilirubin 0.4 AST 36 ALT 36 H Alkaline Phosphatase 82 Total Creatine Kinase 57 CK-MB (CK-2) TNP CK-MB (CK-2) Rel Index TNP Troponin I < 0.012 NT-Pro-B Natriuret Pep Total Protein 7.7 Albumin 4.0 Globulin 3.7 Albumin/Globulin Ratio 1.1 Triglycerides 146 Cholesterol 192 LDL Cholesterol, Calc 112 H HDL Cholesterol 51 Lipase 107 Urine Color Urine Appearance Urine pH Ur Specific [place] Urine Protein Urine Glucose (UA) Urine Ketones Urine Occult Blood Urine Nitrate Urine Bilirubin Urine Urobilinogen Ur Leukocyte Esterase Urine RBC Urine WBC Urine Bacteria Ur Culture Indicated? SARS-CoV-2 (PCR) 04/29/22 04/29/22 04/29/22 16:12 16:12 19:10 WBC RBC Hgb Hct MCV MCH MCHC RDW Plt Count Neut % (Auto) Lymph % (Auto) [place] % (Auto) Eos % (Auto) Baso % (Auto) Neut # (Auto) Lymph # (Auto) [place] # (Auto) Eos # (Auto) Baso # (Auto) Sodium Potassium Chloride Carbon Dioxide BUN Creatinine Estimated GFR BUN/Creatinine Ratio Glucose Hemoglobin A1c 10.2 H Calcium Magnesium Total Bilirubin AST ALT Alkaline Phosphatase Total Creatine Kinase CK-MB (CK-2) CK-MB (CK-2) Rel Index Troponin I NT-Pro-B Natriuret Pep 234 H Total Protein Albumin Globulin Albumin/Globulin Ratio Triglycerides Cholesterol LDL Cholesterol, Calc HDL Cholesterol Lipase Urine Color Urine Appearance Urine pH Ur Specific [place] Urine Protein Urine Glucose (UA) Urine Ketones Urine Occult Blood Urine Nitrate Urine Bilirubin Urine Urobilinogen Ur Leukocyte Esterase Urine RBC Urine WBC Urine Bacteria Ur Culture Indicated? SARS-CoV-2 (PCR) Negative 04/29/22 04/29/22 19:20 23:59 WBC RBC Hgb Hct MCV MCH MCHC RDW Plt Count Neut % (Auto) Lymph % (Auto) [place] % (Auto) Eos % (Auto) Baso % (Auto) Neut # (Auto) Lymph # (Auto) [place] # (Auto) Eos # (Auto) Baso # (Auto) Sodium Potassium Chloride Carbon Dioxide BUN Creatinine Estimated GFR BUN/Creatinine Ratio Glucose Hemoglobin A1c Calcium Magnesium Total Bilirubin AST ALT Alkaline Phosphatase Total Creatine Kinase CK-MB (CK-2) CK-MB (CK-2) Rel Index Troponin I < 0.012 NT-Pro-B Natriuret Pep Total Protein Albumin Globulin Albumin/Globulin Ratio Triglycerides Cholesterol LDL Cholesterol, Calc HDL Cholesterol Lipase Urine Color Yellow Urine Appearance Sl cloudy Urine pH 6.0 Ur Specific [place] 1.015 Urine Protein Negative Urine Glucose (UA) Trace H Urine Ketones Negative Urine Occult Blood Trace-intact Urine Nitrate Positive H Urine Bilirubin Negative Urine Urobilinogen 0.2 Ur Leukocyte Esterase 1+ H Urine RBC 5-10/hpf H Urine WBC 5-10/hpf H Urine Bacteria Many (>30) H Ur Culture Indicated? Specimen cultured SARS-CoV-2 (PCR) [facility] Medical History (Updated 04/30/22 @ 04:09 by Babs Gonsales [facility]) No pertinent past medical history Surgical History (Updated 04/30/22 @ 04:08 by Babs Gonsales [facility]-) History of cholecystectomy History of hysterectomy History of tonsillectomy Family History Mother Recurrent strokes Heart attack Father Hypertension Dementia Social History household members: spouse Smoking Status: Never smoker alcohol intake: current Assessment & Plan Assessment & Plan narrative: 1. Hypertensive Urgency, new diagnosis of essential hypertension, acute, present on admission -In ED:181/117, 201/87, nitro paste was applied and patient was given ASA, rep eat blood pressure 161/78. - 12/22/2020 160/86. -troponin lipase and magnesium all WNL- Trend troponins and electrolyte, -lipids, BNP ordered -ASA, morphine and nitro as needed for CP -patient on telemetry -chest x-ray is negative for any acute cardiopulmonary process. -EKG NSR rate of 61, without ST or T-wave changes. -initiate lisinopril 10 mg b.i.d.- Nursing to provide up-to-date medication patient information -Provide outpatient B/P log & checking your b/p at home- to complete following d/c to provide to new PCP for evaluation. -patient education handout on hypertension -exercise stress equivical as pt had poor exercise tolerance -echo with EF -patient needs to acquire new PCP and follow up within 2 weeks of hospital discharge for evaluation of blood pressure control 2. Hyperglycemia, new diagnosis of type 2 diabetes, acute, present on admission -glucose 222- monitor blood sugars, renal function, and electrolytes -A1C 10.2% -patient admitted under diabetic protocol, glucose checks a.c. HS, low-dose sliding scale -because A1c >9% will initiate Lantus 20 units q.h.s.-nursing to provide up-to-date patient education regarding Lantus, diabetes -patient will need prescription for Accu-Chek, and Lantus on discharge -provided patient initial education regarding diabetes. -ANALYTICAL STATISTICIAN Consult DM outpt education & management. -dietary consult for diabetes education nutritional lifestyle and exercise changes. 3. Overweight, acute on chronic, present on admission -as evidence by BMI 34.9-patient is overweight status has significant impact on worsening high blood pressure, the development and control of diabetes, also patient highly likely to have hyperlipidemia putting her at significant high risk of cerebrovascular events, cardiovascular events, impaired wound healing and immune compromised. -dietary consult placed for nutritional, lifestyle, exercise, and lifestyle changes. Code status:Full Surrogate decision maker:Armando Pascal Spouse COVID PCR: Negative DVT/VTE prophylaxis:Lovenox & SCD's Disposition: Patient admitted for observation to initiate an established g lycemic and blood pressure control, in addition to risk stratification expected length of stay less than 2 midnights. Time Spent With Patient Critical Care time: I spent a total of [] minutes of critical care time on this patient's care today; this time is exclusive of procedural time. Quality VTE Deep Vein Thrombosis/Pulmonary Embolism Present on Admission: No
[2022-04-30] MEDS: lisinopriL 10 MG TABLET PO ×2 (08:08→21:38)
[2022-04-30] MEDS: ASPIRIN EC 81 MG TABLET PO (08:08)
[2022-04-30] MEDS: ENOXAPARIN 40 MG/0.4 ML SYRINGE SUBCUT (08:08)
--- NOTE | 2022-04-30 08:12 | PC.NURSE ---
Dayshift Pt A.M. BG was 190 Pt is NPO and has strict orders, called Dr Knight to confirm if A.M. medications could be given with water, approved and asked if A.M. insulins should be given since NPO and stress test is to be done this A.M. gave orders to hold A.M. insulin doses.
--- NOTE | 2022-04-30 08:18 | PC.NURSE ---
DayShift Pt left floor at 820 to go to stress test. via wheelchair accompanied by staff
[2022-04-30 08:23] LABS: INR 1.1 (0.9-1.3)
[2022-04-30 08:29] LABS: BUN Creatinine Ratio 17.9 (6-22); Blood Urea Nitrogen 10 mg/dL (7-17); Calcium 8.6 mg/dL (8.4-10.2); Carbon Dioxide 25 mmol/L (22-32); Chloride 104 mmol/L (98-107); Estimated Glomerular Filt Rate > 60 mL/min (>60); Glucose 193 mg/dL (80-110); HEMOLYSIS < 15 (0-50); Potassium 4.1 mmol/L (3.4-5.1); Sodium 136 mmol/L (137-145)
[2022-04-30 08:41] LABS: Troponin I < 0.012 ng/mL (0.01-0.034)
--- NOTE | 2022-04-30 08:56 | PC.NURSE ---
DayShift Pt returned from Stress test at 855. Pt orientated to call light.
--- NOTE | 2022-04-30 09:00 | PC.NURSE ---
Day shift: Pt back from stress test at approx 0850. Per DI RN Mary the Pt was unable to maintain stress test after 3 minutes. OK to eat and drink now per RN Mary.
[2022-04-30] MEDS: INSULIN LISPRO 100 UNIT/ML 3ML VIAL SUBCUT ×2 (12:38→16:14)
--- NOTE | 2022-04-30 13:10 | DIET.CONS ---
Addendum entered by Gerri Farnsworth 04/30/22 15:28: RD reviewed and agrees Original Note: Dietary Consultation Note Admission Date: 04/29/2022 19:56 Assessment: 62 yo F admitted for chest pain referred to RD for new DM2 and HTN dx. Pt has a brother with DM. Pt received DM2 and HTN education by Hospitalist. Pt continues to feel unprepared to d/c r/t lack of DM2 and HTN intervention knowledge. Pt exhibited tearfulness and worry when talking about leaving the hospital and unsure how to feed herself for blood sugar and blood pressure support. Pt appears overwhelmed with the information provided thus far and has multiple questions about what she can and cannot eat. RD saw pt at bedside. Pt reports lack of knowledge of carbohydrate-containing and protein-containing foods. Pt is unclear on how many carbohydrates she can eat in a day. Pt has not started insulin yet and is unsure how insulin will make her feel. Reports she is not established with a PCP, as her PCP has retired a few years ago. Plans to re-establish with care here at . sees Mikealix Pinedo. Eating schedule: B: 8 am Vaurum or Snip[employer], Pt works from 9 am to 2 pm. 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 L: 2:30 pm D: 6-6:30 pm Ht: 170.18 cm Wt: 101 kg BMI: 34.9 Last BM: 04/29/22 (04/29/22 21:45) MNA: 12 Mohsen Score: 21 Diet: 04/29/22 Breakfast Heart Healthy Diet Diet Modifications: Sodium Level: 2 gm Sodium 04/30/22 Breakfast Carbohydrate Consistent Diet Diet Modifications: Carbohydrate level: Small (2 CHO) Bedtime snack: Yes Nutrition Percent Meal Consumed 50% 04/30/22 09:00 Labs: RBC 5.11 X10^6/uL (4.0-5.2) 04/29/22 16:12 Hgb 15.1 g/dL (12.0-16.0) 04/29/22 16:12 Hct 43.9 % (36-46) 04/29/22 16:12 Creatinine 0.56 mg/dL (0.52-1.04) 04/30/22 07:41 Hemoglobin A1c 10.2 % (4.0-6.0) H 04/29/22 16:12 NT-Pro-B Natriuret Pep 234 pg/mL (<125) H 04/29/22 16:12 Nutrition Diagnosis: 1. Altered food- and nutrition-related laboratory values r/t DM2 and HTN aeb BP in ED of 181/117 and 201/87, BG 222 mg/dL, and A1C 10.2%. 2. Food- and nutrition-related knowledge deficit r/r new diagnosis of DM and HTN aeb pt report. Interventions: 1. To support blood sugar health, RD educated pt on carbohydrate-containing and protein-containing foods. RD provided pt with plate method handout and discussed limiting carbohydrate-containing foods to NMT 1 cup per meal and always pairing carbohydrate-containing foods with protein-containing foods, roughly 3-4 oz. per meal or 1 oz per snack. 2. RD recc pt establish a new PCP once d/c and request referral from new PCP for DM and HTN education with OP RD. Monitoring/Evaluations: RD/CDCES OP follow-up recommended. Electronically Signed by: Laurita Fuentes 04/30/22 13:10 Clinical Dietitian [address] [id number]
--- NOTE | 2022-04-30 14:29 | CM.DPNOTE ---
Discharge Planing Note: Patient is new diabetic and has worked with story editor Gerri. She lives with spouse and is independent at baseline. Plan: DC when medically stable, spouse to transport. Gisella Syed RN/DCP
--- NOTE | 2022-04-30 17:48 | DI.NM.S_ITS ---
DATE OF SERVICE: 04/30/2022 PROCEDURE: Exercise stress test. INDICATION: Chest pain. CARDIAC STRESS: The patient underwent exercise stress test under the supervision of attending staff. The patient walked on John protocol for 2 minutes and 48 seconds and achieved 4.6 METs of workload. KIANA positive 55 percent and maximum heart rate of 144, which was 91 percent of target heart rate. Resting blood pressure 150/84 and peak blood pressure 180/82. The patient had shortness of breath, but no chest discomfort. Baseline rhythm was sinus. During exercise some nonspecific ST-T changes, however no convincing ischemic changes. The patient has frequent monomorphic PVCs during exercise, as well as seen in early recovery. CONCLUSION: Markedly diminished cardiac tolerance and exercise capacity. Functional aerobic impairment positive 55 percent. No convincing ischemic changes seen. Frequent isolated monomorphic premature ventricular contractions during stress and recovery without any ventricular tachycardia. The patient had shortness of breath, but no chest pain. Achieved 91 percent of target heart rate. Normal blood pressure response. Correlate clinically and if clinical suspicion for coronary artery disease is high, repeat stress test with imaging modality. Katelyn Pascal - BALTAZAR/kasandra/jose rafael doc#: [id number]/job#: [id number] dd: 04/30/2022 13:00:00 dt: 04/30/2022 17:39:00 DICTATING /COPIES TO: Derrick Roa MD COPIES MNE: CAROLIN;
[2022-04-30] MEDS: INSULIN GLARGINE 100 UNIT/ML 3ML PEN 20 UNIT SUBCUT (21:38)
[2022-05-01 06:00] VITALS: BP 138/75; PULSE 64; RESP 17; TEMP 36.6; O2SAT 96
[2022-05-01] MEDS: ENOXAPARIN 40 MG/0.4 ML SYRINGE SUBCUT (08:17)
[2022-05-01 08:18] VITALS: BP 138/75; PULSE 64
[2022-05-01] MEDS: lisinopriL 10 MG TABLET PO (08:18)
[2022-05-01] MEDS: ASPIRIN EC 81 MG TABLET PO (08:18)
--- NOTE | 2022-05-01 08:42 | PC.NURSE ---
Day shift: Dr Newell made aware that chem stress test are not done on weekends. Also d/c'd NPO diet. Pt made aware. military pay clerk Amanda made aware as well.
[2022-05-01 09:05] VITALS: BP 122/75; PULSE 65; RESP 16; TEMP 36.7; O2SAT 96
[2022-05-01 09:07] VITALS: O2SAT 96
[2022-05-01 12:00] VITALS: O2SAT 98
[2022-05-01] MEDS: TRIMETH/SULFA 160/800 (DS) TABLET 1 TAB PO (12:37)
[2022-05-01] MEDS: INSULIN LISPRO 100 UNIT/ML 3ML VIAL SUBCUT (12:58)
--- NOTE | 2022-05-01 13:39 | PC.NURSE ---
Day shift: Pt left unit via WC at approx 1335. Paperwork signed and all questions answered. D/c teaching gone over in length and detail by ALBER Henriquez. New MD scripts given to Pt. Encouraged to f/u with PCP. Pt's Spouse is driving them home. Pt has all personal belongings.
--- NOTE | 2022-05-01 18:53 | PM.DS.1 ---
History of Present Illness History of Present Illness Date Patient Seen: 04/29/22 Time Patient Seen: 20:17 Chief complaint: CHEST PAIN Narrative: Per admitting provider: Katelyn Pascal is a 62-year-old female with no known medical history, takes no medications who presented to the ED with complaining of off and on upper left-sided diffuse, non radiating, chest pressure discomfort for the past 2 months, worsened last 2 days increaing in frequency. Pain occurs both at rest and with exertion, is able to press and reproduce pain with palpation, has not noted anything that resolves pain, has associated headache, has noted some mild changes vision, last eye appointment on October 2021 normal, no diaphoresis, no abdominal pain, nausea, vomiting or syncope, notes mild shortness of breath at comes and goes.? Patient denies any cardiovascular history, and has no previous cardiovascular workup or risk stratification. Denies history of any respiratory disorder, PEs or DVT. Chest pressure ranges from 4-6/10. Patient is a nonsmoker denies previous history, drinks alcohol very rarely couple times a year, denies any use of recreational substances, has been swimming in a lap pool, regular exercise over the past 10 months and has lost 25 lb. Patient notes she always has increased intake of fluids, has noted increased urinary frequency, nocturia x2 nightly, denies dysuria, urgency. Last time she saw primary care Dr. Fung was 5 years ago.? However since then has retired.? Patient did call office to make appointment and is not available until 2 more weeks.? Patient lives with her , 2 sons and a [id number], works in a post office, a regular level of stress no recent changes. In ED patient presented blood pressure is 181/117, 201/87, nitro paste was applied and patient was given ASA, repeat blood pressure 161/78. Upon admit patient is anxious but resting comfortably in bed, currently not experiencing chest pressure, denies shortness of breath, denies headache, changes in vision, weakness, numbness, tingling, fever, body aches, chills, abdominal pain, nausea, vomiting, diarrhea, urinary retention, urinary symptoms, upper respiratory symptoms, skin infections, injury, recent illness injury or trauma. Vital signs temp 97.7?, BP 138/66, HR 62, R 20, O2 saturation 99% on room air. Blood pressure recorded last ED visit on 12/22/2020 160/86. Patient's CBC and CMP were within normal limits with the exception of a glucose 222, troponin lipase and magnesium all WNL, chest x-ray is negative for any acute cardiopulmonary process. Patient's EKG NSR rate of 61, without ST or T-wave changes. Patient admitted for chest pain, hypertensive urgency, hyperglycemia. Discharge Providers Provider Date of admission: 04/29/22 19:56 Discharge Date: 05/01/22 Primary care physician: Alonzo Fung MD Consults: 04/29/22 20:09 Consult to Dietitian, Adult Routine Comment: Reason For Exam: HTN urgency, BMI 29 04/29/22 20:10 Consult to Discharge Planning Routine Comment: 04/30/22 Consult to Dietitian, Adult Routine Comment: A1C 10.2 Reason For Exam: New diabetes diagnosis 04/30/22 04:27 Consult to [facility] [place] [facility] [place] Signal Circuit Designer Routine Comment: DM education/management Discharge provider: Seb Newell MD Summary Hospital Course Discharge Diagnosis: 1. Atypical chest pain 2. New diagnosis type 2 diabetes 3. Hypertensive urgency 4. Anxiety 5. UTI Hospital Course: Ms. Pascal was admitted to the hospital with chest pain that was reproducible. Her troponins were negative. Her framingham risk score put her as low risk. She did have an ECHO done which showed probable mild apical akinesis. Stress treadmill was attempted but she was unable to mount an elevated heart rate due to fatiguability. Plan was for possible inpatient nuc stress test but she felt much improved and requested to follow up as an outpatient. Given her low risk score she was discharged. She is newly diagnosed with diabetes, with a1c over 10, and started on metformin and may need to be started on insulin when she follow up with her PCP. She had elevated blood pressure which improved with lisinopril. For her chest pain she was discharged with aspirin and statin. She had notable anxiety and was discharged with citalopram. She also had a UTI and was discharged with antibiotics. She was recommended to follow closely with her PCP to consider outpatient stress test and to continue to treat her diabetes and hypertension. She did meet with toll line inspector regarding these new diagnoses and is planned to meet further as an outpatient. Exam Vital Signs (past 8 hours): - 05/01/22 12:00 Pulse Oximetry 98 Oxygen Delivery Method Room Air Oxygen Delivery Method Room Air Oxygen Flow Rate 0 Narrative Exam Narrative: GEN: no acute distress CV: regular rate and rhythm, no murmurs, left chest pain to palpation PULM: clear bilaterally ABD: soft, nontender, nondistended, no organomegaly Objective Labs Result Diagrams: 04/29/22 16:12 04/30/22 07:41 [facility] Medical History (Updated 04/30/22 @ 04:09 by HAL Gibson-APOLLO) No pertinent past medical history Surgical History (Updated 04/30/22 @ 04:08 by HAL Gibson-APOLLO) History of cholecystectomy History of hysterectomy History of tonsillectomy Family History Mother Recurrent strokes Heart attack Father Hypertension Dementia Social History household members: spouse Smoking Status: Never smoker alcohol intake: current Discharge Plan Discharge Plan Patient Disposition: Home Provider Discharge Comment: Ms. Pascal came in to the hospital with chest pain. She did not have a heart attack. She was found to have a urine infection and placed on antibiotics. She had newly diagnosed diabetes and high blood pressure and was started on pills for this with metformin (diabetes) and lisinopril (high blood pressure). She was started on citalopram for anxiety. She was ordered for aspirin and atorvastatin for heart protection. She should follow up with her PCP and consider an outpatient stress test. She should follow up with toll line inspector as an outpatient. Discharge orders & Medications Prescriptions: New sulfamethoxazole-trimethoprim 800-160 mg Tablet 1 tab PO BID Qty: 5 0RF aspirin 81 mg Tablet,Delayed Release (Dr/Ec) 81 mg PO DAILY Qty: 30 0RF citalopram 10 mg tablet 10 mg PO DAILY Qty: 30 0RF atorvastatin 40 mg tablet 40 mg PO BEDTIME Qty: 30 0RF metformin 500 mg tablet 500 mg PO BID Qty: 60 0RF lisinopril 20 mg tablet 20 mg PO DAILY Qty: 30 0RF Follow up/Referrals: Alonzo Fung MD [Primary Care Provider] - Diet/Activity/Treatments Diet: Regular Visit Report/Discharge Packet Instructions: Type 2 Diabetes, High Blood Pressure, Carbohydrate-Counting Diet, DI for Urinary Tract Infection (UTI), DI for Diabetes Type 2, Metformin Discharge Data Primary Care Provider: Alonzo Fung Attending Provider: Babs Gonsales VTE Deep Vein Thrombosis/Pulmonary Embolism Present on Admission: No
== END 2022-05-01 13:42 | disposition home or self-care (01) ==
LOC: ED 19:28 → AC 19:58
PROVIDERS: Emergency Medicine; Admitting Provider Nurse Practitioner Family; Emergency Provider Emergency Medicine; Family Provider Family Medicine; PCP Family Medicine; Visit Provider Nurse Practitioner Family
DX: R07.89 Other chest pain (principal); I16.0 Hypertensive urgency; R06.02 Shortness of breath; I10 Essential (primary) hypertension; E11.65 Type 2 diabetes mellitus with hyperglycemia; N39.0 Urinary tract infection, site not specified; B96.89 Other specified bacterial agents as the cause of diseases classified elsewhere; E66.9 Obesity, unspecified; F41.9 Anxiety disorder, unspecified; Z68.34 Body mass index [BMI] 34.0-34.9, adult; Z20.822 Contact with and (suspected) exposure to COVID-19
CPT/HCPCS: 36415; 36592; 71045; 80048; 80053; 80061; 81001; 82550; 82962; 83036; 83690; 83735; 83880; 84484; 85025; 85610; 87077; 87086; 87186; 87635; 93005; 93017; 93306; 96360; 96372; 99284; C9803; G0378; J1650; J1815

== ENCOUNTER → 2022-07-15 14:49 | Outpatient (CLI) | payer OTHER, SELFPAY ==
[2022-04-29 21:45] VITALS: BMI 34.9
--- NOTE | 2022-07-29 09:30 | DIAB.MNT ---
Initial Diabetes Medical Nutrition Therapy Assessment Name: Katelyn Pascal Date: 07/15/22 Time: 3-4p Dx: Type II Diabetes Provider: Arvin Katelyn presents for initial visit regarding newly diagnosed T2DM with HgA1c of 7.1% 05/2022. Currently taking 500mg Metformin BID with some mildly elevated FBG (See below SMBG). Reports she has intentionally lose 22# over 2 months. Has cut out soda and made some diet changes. Admits the holidays were a challenge. Reports struggle with diet variety. Endorses food cravings, mostly bread. Diet Recall: 830a: premier protein shake OR 1/2 whole grain bread with poached egg OR PB and toast OR half banana with one turkey aviles sn: nothing or almonds 12p: turkey and 6 large grapes OR celery and PB OR turkey aviles with apples slices 530-6p: steak/chicken/pork with salad or stir cates (does not like seafood but trying cod) OR pasta with ground turkey on zucchini noodles 8p: almonds/cashews OR celery and PB Beverages: 12oz seltzer, 96oz water, unsweetened tea. No fast food No soda or candy Carb cravings at night Anthropometrics: Ht: 67 Wt: 201# Physical Activity: walking 4x per week. Swim 2x per week. Self-Monitoring Blood Glucose: Checking FBG and some pre dinner. Reports BG never over 150 mg/dl. Endorses lower FBG prior to holidays (130-140mg/dl). All FBG above ADA goal of 80-130 mg/dl. Date Pre Post Pre Post Pre Post HS 07/09 138 7 136 8 145 131 07/12 150 114 07/13 145 07/14 141 07/15 160 Diabetes Medications: Rx 1000mg Metformin BID Pertinent Labs: 05/12/22 HgA1c: 7.1% 04/2022 Cholesterol: 192 LDL: 112 H HDL: 51 Past Medical History: (Last Updated 04/30/22 @ 04:09 by Babs Gonsales PATTERN GENERATOR OPERATOR-) No pertinent past medical history Nutrition Rx: Carbohydrates: Meal:30-45g Snack:15-30g Nutrition Diagnosis: - Nutrition and food related knowledge deficit r/t new dx T2Dm aeb HgA1c 7.1% Intervention: This participant was very receptive. Provided appropriate educational handouts. Discussed the following topics: Completed intake assessment. Discussed barriers to care. Pathophysiology of T2DM HgA1c, its correlation to blood glucose numbers, and rationale for goal Importance of self-monitoring, how often, and when to check. Suggested checking at different times to evaluate meals Plate Method, impact of macronutrients on blood sugar, meal timing, carbohydrate counting, pairing macronutrients and spreading out carbohydrates for better blood glucose management Recommended servings for carbohydrates at meals and snacks Carbohydrates intake in moderation for long-term success Medication management and BG goals Role of physical activity and following provider guidelines for safety Created SMART goals for patient self-care and success. Goals: Cont checking BG Increase metformin to rx Add popcorn as Hs snack Follow-up: VIRLA NORMAN follow-up in 3-4 weeks Gerri Farnsworth RDN, [place] Certified [facility] and Cane [employer]er P: [phone] Thank you for this referral
== END ==
PROVIDERS: Family Provider Family Medicine; PCP Family Medicine; Referring Provider Family Medicine; Visit Provider Family Medicine
DX: E11.9 Type 2 diabetes mellitus without complications (principal); Z71.3 Dietary counseling and surveillance; Z79.84 Long term (current) use of oral hypoglycemic drugs
CPT/HCPCS: 97802

== ENCOUNTER → 2023-04-09 10:03 | Outpatient (CLI) | payer OTHER, SELFPAY ==
[2022-04-29 21:45] VITALS: BMI 34.9
[2023-04-09 10:26] LABS: Hemoglobin A1C% w Est Avg Glu 6.1 % (4.0-6.0)
[2023-04-09 10:34] LABS: Alanine Aminotransferase 23 IU/L (<35); Albumin 4.2 g/dL (3.5-5.0); Albumin Globulin Ratio 1.2 (1.0-2.8); Alkaline Phosphatase 56 U/L (38-126); Aspartate Aminotransferase 26 IU/L (14-36); BUN Creatinine Ratio 24.5 (6-22); Bilirubin Total 0.7 mg/dL (0.2-1.3); Blood Urea Nitrogen 23 mg/dL (7-17); Calcium 10.1 mg/dL (8.4-10.2); Carbon Dioxide 29 mmol/L (22-32); Chloride 102 mmol/L (98-107); Cholesterol 150 mg/dL (140-199); Estimated Glomerular Filt Rate > 60 mL/min (>60); Globulin 3.6 g/dL (1.7-4.1); Glucose 112 mg/dL (80-110); HDL Cholesterol 60 mg/dL (40-60); HEMOLYSIS < 15 (0-50); LDL Cholesterol Calculated 69 mg/dL (<100); Potassium 5.1 mmol/L (3.4-5.1); Sodium 139 mmol/L (137-145); Total Protein 7.8 g/dL (6.3-8.2); Triglycerides 105 mg/dL (35-150)
[2023-04-09 11:02] LABS: Thyroid Stimulating Hormone 2.58 uIU/mL (0.47-4.68)
[2023-04-09 11:43] LABS: Creatinine Urine Random 83.1 mg/dL
[2023-04-09 11:47] LABS: Microalbumi Creatinin Ratio Ur 10.8 ug/mg CR (<30); Microalbumin Urine Random 0.9 mg/dL (0-1.6)
== END ==
PROVIDERS: Family Provider Family Medicine; PCP Family Medicine; Referring Provider Family Medicine; Visit Provider Family Medicine
DX: E11.69 Type 2 diabetes mellitus with other specified complication (principal); E66.9 Obesity, unspecified; I10 Essential (primary) hypertension; Z13.29 Encounter for screening for other suspected endocrine disorder
CPT/HCPCS: 36415; 80053; 80061; 82043; 82570; 83036; 84443

== ENCOUNTER → 2024-07-03 17:33 | Outpatient (CLI) | payer OTHER, SELFPAY ==
[2022-04-29 21:45] VITALS: BMI 34.9
[2024-07-03 18:30] LABS: Alanine Aminotransferase 25 IU/L (<35); Albumin 4.2 g/dL (3.5-5.0); Albumin Globulin Ratio 1.2 (1.0-2.8); Alkaline Phosphatase 69 U/L (38-126); Aspartate Aminotransferase 32 IU/L (14-36); BUN Creatinine Ratio 23.9 (6-22); Bilirubin Total 0.7 mg/dL (0.2-1.3); Blood Urea Nitrogen 21 mg/dL (7-17); Calcium 9.8 mg/dL (8.4-10.2); Carbon Dioxide 28 mmol/L (22-32); Chloride 104 mmol/L (98-107); Cholesterol 138 mg/dL (140-199); Estimated Glomerular Filt Rate > 60 mL/min (>60); Globulin 3.4 g/dL (1.7-4.1); Glucose 102 mg/dL (80-110); HDL Cholesterol 51 mg/dL (40-60); HEMOLYSIS < 15 (0-50); LDL Cholesterol Calculated 68 mg/dL (<100); Potassium 4.4 mmol/L (3.4-5.1); Sodium 136 mmol/L (137-145); Total Protein 7.6 g/dL (6.3-8.2); Triglycerides 93 mg/dL (35-150)
[2024-07-05 08:07] LABS: CRP, High Sensitivity 0.44 mg/L (0.00-3.00)
== END ==
LOC: LAB 17:34
PROVIDERS: Family Provider Family Medicine; PCP Family Medicine; Referring Provider Family Medicine; Visit Provider Family Medicine
DX: E11.69 Type 2 diabetes mellitus with other specified complication (principal); E66.9 Obesity, unspecified; I10 Essential (primary) hypertension; E78.5 Hyperlipidemia, unspecified
CPT/HCPCS: 36415; 80053; 80061; 86140

== ENCOUNTER → 2024-07-10 11:58 | Outpatient (CLI) | payer OTHER, SELFPAY ==
[2022-04-29 21:45] VITALS: BMI 34.9
[2024-07-10 12:53] LABS: Hemoglobin A1C% w Est Avg Glu 6.5 % (4.0-6.0)
== END ==
PROVIDERS: Family Provider Family Medicine; PCP Family Medicine; Referring Provider Family Medicine; Visit Provider Family Medicine
DX: E11.69 Type 2 diabetes mellitus with other specified complication (principal); E66.9 Obesity, unspecified
CPT/HCPCS: 83036

== ENCOUNTER 2025-01-03 01:04 | Emergency (ER) | payer OTHER, SELFPAY ==
[2022-04-29 21:45] VITALS: BMI 34.9
[2025-01-03 01:08] VITALS: BP 200/95; PULSE 89; RESP 20; TEMP 37.2; O2SAT 100; BMI 28.1
--- NOTE | 2025-01-03 01:41 | ED_ITS ---
HPI - Abdominal Pain General Chief Complaint: Abdominal Pain Stated Complaint: vomiting, rt side abd pain, shivering Time Seen by Provider: 01/03/25 01:41 Source: patient Mode of arrival: Wheelchair History of Present Illness HPI narrative: 64-year-old female with history of remote cholecystectomy, history of diabetes, has had nausea nonbloody emesis, with right-sided abdominal pain 11:30 p.m. last night. No injury or trauma new activities. She admits to loose stools, without black or red color, no mucoid appearance. No recent exposure to antibiotics. No history of colitis or diverticulitis recalled. No prior appendectomy. She does not recall previous urinary stones. She is not prone to urinary tract infections, none recent, denies painful or frequent urination. Related Data Previous Rx's ?Medication ?Instructions ?Recorded blood sugar diagnostic (Blood #100 ea 12/20/23 Glucose Test strips) blood-glucose meter #1 ea 12/20/23 gabapentin 100 mg capsule 100 mg PO BEDTIME PRN foot p ain 07/10/24 #90 caps semaglutide 0.25 mg or 0.5 mg (2 0.25 mg (0.368 mL) FELICIANO BCUT QWEEK #3 07/10/24 mg/3 mL) subcutaneous pen injector mL (Ozempic) atorvastatin 20 mg tablet 20 mg PO ONCE PM #90 tabs metformin 1,000 mg tablet 1,000 mg PO BID #180 tabs cefdinir 300 mg capsule 300 mg PO BID 10 days #20 ca ps 01/03/25 Allergies Allergy/AdvReac Type Severity Reaction Status Date / Time morphine Allergy Mild HIVES, Verified 01/03/25 01:08 PRURITIS,URTICARIA Patient History Medical History (Updated 01/03/25 @ 03:34 by John Sarabia MD) Obesity, Class I, BMI 30-34.9 Hypertensive urgency Surgical History (Updated 04/30/22 @ 04:08 [facility] History of hysterectomy History of cholecystectomy History of tonsillectomy Family History Mother Recurrent strokes Heart attack Father Hypertension Dementia Social History household members: spouse Smoking Status: Never smoker alcohol intake: current (twice a year ) substance use type: does not use Smoking Status: Never smoker alcohol intake frequency: holidays/special occasions only Exam Narrative Exam Narrative: GENERAL: Well-developed patient, in mild distress. HEAD: Atraumatic. Normocephalic. EYES: Pupils equal round and reactive. Extraocular motions intact. No scleral icterus. No injection or drainage. ENT: Nose without bleeding, purulent drainage. Throat without erythema, tonsillar hypertrophy or exudate. Airway patent. NECK: Trachea midline. Non tender CARDIOVASCULAR: Regular rate and rhythm without murmurs, gallops, or rubs. RESPIRATORY: Clear to auscultation. Breath sounds equal bilaterally. No wheezes, rales, or rhonchi. GASTROINTESTINAL: Abdomen nondistended, some mild tenderness right mid and upper quadrant. Bowel tones unremarkable, not fast or slow, without rushes or tinkles. EXTREMITIES: No edema or joint tenderness. BACK: Nontender without deformity or crepitance. No flank tenderness. NEURO: AOx3. Motor functions grossly nonfocal. SKIN: No rash or erythema of visible areas Initial Vital Signs Initial Vital Signs: Vital Signs Temperature 99.0 F 01/03/25 01:08 Pulse Rate 89 01/03/25 01:08 Respiratory Rate 20 01/03/25 01:08 Blood Pressure 200/95 H 01/03/25 01:08 Pulse Oximetry 100 01/03/25 01:08 Oxygen Delivery Method Room Air 01/03/25 01:08 Course Orders Ordered: ED Orders 01/03/25 02:29 CT abdomen pelvis wo con Stat 01/03/25 03:05 Urine Culture Stat Urine Microscopic Stat 01/03/25 03:15 Complete Blood Count AUTO DIFF Stat Comprehensive Metabolic Panel Stat Lipase Stat 01/03/25 03:32 Urinalysis and Microscopic Stat Discontinued Medications Hydromorphone HCl (Hydromorphone Hcl 0.5 Mg/0.5 Ml Syringe) 0.5 mg IV NOW ONE Stop: 01/03/25 02:29 Last Admin: 01/03/25 03:01 Dose: 0.5 mg Documented By: GEORGINA Ceftriaxone Sodium 1,000 mg/ (Sodium Chloride) 100 mls @ 200 mls/hr IV NOW ONE Stop: 01/03/25 03:49 Last Infusion: 01/03/25 04:38 Dose: Infused Documented By: Admin: 01/03/25 04:07 Dose: 200 mls/hr Documented By: GEORGINA Ondansetron HCl (Ondansetron 4 Mg/2 Ml Inj) 4 mg IV NOW ONE Stop: 01/03/25 02:29 Last Admin: 01/03/25 03:01 Dose: 4 mg Documented By: GEORGINA Vital Signs Vital signs: Vital Signs - 8 hr 01/03/25 01:08 01/03/25 04:38 Temperature 99.0 F Pulse Rate 89 96 H Respiratory Rate 20 18 Blood Pressure 200/95 H 114/59 L Pulse Oximetry 100 94 Oxygen Delivery Method Room Air Room Air MDM - Abdominal Pain Lab Data Attestation: I reviewed the patient's lab results. Lab results narrative: White blood cell count 8500, hemoglobin 14.3, platelets adequate. Glucose 156. BUN 22 with creatinine 0.92. Serum CO2 19 diminished. Electrolytes unremarkable. Liver functions normal. Lipase normal. Urinalysis shows bacteriuria. Urine culture specifically requested. 01/03/25 03:15 01/03/25 03:15 Labs: Lab Results 01/03/25 01/03/25 Range/Units 03:05 03:15 WBC 8.5 (4.5-11.0) X10^3/uL RBC 4.81 (4.0-5.2) X10^6/uL Hgb 14.3 (12.0-16.0) g/dL Hct 41.9 (36-46) % MCV 87.1 (80-100) fL MCH 29.7 (26-34) PG MCHC 34.1 (30-36) % RDW 13.3 (11.6-14.8) % Plt Count 191 (150-400) X10^3/uL Neut % (Auto) 91.5 H (50-75) % Lymph % (Auto) 7.2 L (25-40) % [place] % (Auto) 0.7 L (3-14) % Eos % (Auto) 0.3 L (2-4) % Baso % (Auto) 0.3 (0-2) % Neut # (Auto) 7800 H (9735-8942) /uL Lymph # (Auto) 600 L (3736-1695) /uL [place] # (Auto) 100 (0-900) /uL Eos # (Auto) 0 (0-450) /uL Baso # (Auto) 0 (0-100) /uL Sodium 137 (137-145) mmol/L Potassium 4.0 (3.4-5.1) mmol/L Chloride 104 (98-107) mmol/L Carbon Dioxide 19 L (22-32) mmol/L BUN 22 H (7-17) mg/dL Creatinine 0.92 (0.52-1.04) mg/dL Estimated GFR > 60 (>60) mL/min BUN/Creatinine Ratio 23.9 H (6-22) Glucose 156 H (70-99) mg/dL Calcium 9.4 (8.4-10.2) mg/dL Total Bilirubin 0.8 (0.2-1.3) mg/dL AST 31 (14-36) IU/L ALT 30 (<35) IU/L Alkaline Phosphatase 72 (38-126) U/L Total Protein 7.3 (6.3-8.2) g/dL Albumin 4.2 (3.5-5.0) g/dL Globulin 3.1 (1.7-4.1) g/dL Albumin/Globulin Ratio 1.4 (1.0-2.8) Lipase 70 (23-300) U/L Urine RBC 1-5/hpf (0-5/HPF) Urine WBC 0-1/hpf (0-5/HPF) Ur Squamous Epith Cells 0-1 /hpf (0-5/HPF) Urine Bacteria Moderate (10-30) H (None) Ur Culture Indicated? Cult not indicated Vol Urine Centrifuged Low vol <10ml (spun) A Point of care testing: Urine Dip Bedside Urine Glucose Negative Bedside Urine Bilirubin - Negative Bedside Urine Ketone - Negative Urine Specific [place] 1.020 Bedside Urine Occult Blood +++ Bedside Urine pH 5.5 Bedside Urine Protein - Negative Bedside Urine Urobilinogen - Negative Bedside Urine Nitrite + Positive Bedside Urine Leukocytes + 70 Esterase MDM Narrative Medical decision making narrative: 64-year-old female with right-sided abdominal pain, no trauma, afebrile, sirs screen negative. Mild right mid/upper abdominal tenderness. Nondistended. No guarding or rebound. Requests pain medication. IV Dilaudid given. Labs pending. Lab data: White blood cell count 8500, hemoglobin 14.3, platelets adequate. Glucose 156. BUN 22 with creatinine 0.92. Serum CO2 19 diminished. Electrolytes unremarkable. Liver functions normal. Lipase normal. Urinalysis shows bacteriuria. Urine culture specifically requested. CT noncontrast study ordered. CT abdomen and pelvis noncontrast. Impressions: ?right hydronephrosis with perinephric inflammatory changes. Findings likely related to recently passed right renal stone versus infection. No evidence of colitis diverticulitis bowel obstruction or acute appendicitis.? See tele radiology report. Urinalysis shows bacteriuria with minimal inflammatory cells. However above imaging concerning for possible pyelonephritis. Ordered urine culture. Will cover with antibiotics. IV ceftriaxone. Oral cefdinir sent to her pharmacy for 10 day course. Discharged home. Home with family. Return precautions discussed. Discharge Plan Departure Patient Disposition: Home Clinical Impression: Urinary tract infection, Hydronephrosis of right kidney Instructions: DI for Urinary Tract Infection (UTI) Activity Restrictions/Additional Instructions: Abdominal discomfort. No fever, vital signs normal. CT abdomen and pelvis noncontrast imaging suspicious for right-sided hydronephrosis of the kidney, which could represent infection, could represent recently passed kidney stone. Bacteria noted in your urinalysis, without many inflammatory cells, however given the imaging suspicion for possible kidney infection a urine culture was requested, and antibiotics were started. IV ceftriaxone antibiotic given in the emergency department, with a prescription sent to your pharmacy for further oral antibiotics cefdinir course. Take antibiotics as directed. Drink plenty of fluids. Recheck symptoms with your regular doctor in the next couple of days. Return to this/nearest emergency department for any change worsening symptoms or any concerns prior. Pain medications home pack/prescription were offered, declined. Consider [id number] medication such as Tylenol and or Motrin for pain control. Prescriptions: New cefdinir 300 mg capsule 300 mg PO BID 10 Days Qty: 20 0RF No Action (DME) blood-glucose meter Kit See Rx Instructions .Route Qty: 1 0RF Rx Instructions: Check blood sugar 1-3x daily (DME) Blood Glucose Test Strip See Rx Instructions .ROUTE .MEDSUPPLY Qty: 100 12RF Rx Instructions: Use to test blood glucose 1-3 times daily atorvastatin 20 mg tablet 20 mg PO ONCE PM Qty: 90 0RF metformin 1,000 mg tablet 1,000 mg PO BID Qty: 180 0RF gabapentin 100 mg capsule 100 mg PO BEDTIME PRN (Reason: foot pain) Qty: 90 1RF Rx Instructions: Can up titrate to no more than 600mg if needed to mitigate foot pain Ozempic 0.25 mg or 0.5 mg (2 mg/3 mL) pen injector 0.25 mg SUBCUT QWEEK Qty: 3 0RF Rx Instructions: for 4 weeks Referrals: Aydee Sheridan DO [Primary Care Provider, Medical] Stand Alone Forms: Patient Portal/API
--- NOTE | 2025-01-03 02:29 | DI.CT.S_ITS ---
PROCEDURE: CT ABDOMEN PELVIS WO CON INDICATIONS: right flank/abd pain, prior shawna TECHNIQUE: Axial sections were acquired from the lung bases to the pubic symphysis. Coronal and sagittal reformats were performed. For radiation dose reduction, the following was used: automated exposure control, adjustment of mA and/or kV according to patient size. COMPARISON: None. FINDINGS: Image quality: Diagnostic. Lower Chest: No significant findings. URINARY: Right Kidney: There is an 8 mm 1100 Hounsfield unit calculus that is currently nonobstructive within the upper 3rd right collecting system. Perinephric edema on the right is moderate in severity and hydronephrosis is present extending into the right renal pelvis to the junction of the uppermost margin of the right ureter. Right Ureter: No hydroureter and within the pelvis there are scattered moderate and moderately large pelvic phleboliths including 1 immediately adjacent to the far distal right ureter that is not considered to represent a distal ureteral stone given absence of adjacent hydroureter immediately above.. Left Kidney: 8-9 mm similar radiodensity calculus seen at the upper 3rd collecting system of the left kidney which shows no associated hydronephrosis or perinephric edema. Left Ureter: No hydroureter. Bladder: Normal wall thickness. No stones. ABDOMEN: Liver: No contour-deforming solid mass. Gallbladder: Previously resected. Biliary ducts: No biliary dilation. Pancreas: No ductal dilation. Spleen: Size is within normal limits. Adrenal Glands: No adrenal nodules. Stomach and Bowel: Normal colonic caliber, without significant wall thickening. Peritoneum: No abnormal intraperitoneal fluid. No free air. Ventral Wall: No hernia. Abdominal Nodes: No enlarged retroperitoneal or mesenteric lymph nodes. Vessels: Aorta and inferior vena cava are normal in size. PELVIS: Pelvic Organs: Unremarkable. Pelvic Nodes: Unremarkable. Miscellaneous: No inguinal hernias are seen. Bones: Unremarkable. IMPRESSION: No currently obstructing stones, or hydronephrosis on the left. There is relatively prominent hydronephrosis on the right extending to the uppermost margin of the right ureter, including the renal pelvis, and perinephric edema on the right is present as it is adjacent to the renal pelvis. This can be produced by a recently partially or completely obstructive calculus which has transit through the ureter and been excreted through the bladder. Alternatively, the current 8 mm calculus may have been previously position to cause obstruction at the ureteropelvic junction and now has transit superiorly away from an obstructive position. The left nonobstructive calculus is almost identical in size and radiodensity to that on the right. Urology consultation likely is warranted given the size of the bilateral calculi and the likelihood of the right-sided calculus having been obstructive. Note: Agree with preliminary report. However, my opinion that the right side currently nonobstructive calculus had recently likely caused obstruction on the right was not previously suggested. Dictated by: Armando Herbert M.D. on 01/03/2025 at 9:39 Approved by: Armando Herbert M.D. on 01/03/2025 at 9:49
[2025-01-03] MEDS: ONDANSETRON 4 MG/2 ML INJ IV (03:01)
[2025-01-03 03:24] LABS: Add Manual Diff / Slide Review NO; Hematocrit 41.9 % (36-46); Hemoglobin 14.3 g/dL (12.0-16.0); Lymphocytes Absolute Auto 600 /uL (1100-4500); Mean Corpuscular HGB Conc 34.1 % (30-36); Mean Corpuscular Hemoglobin 29.7 PG (26-34); Mean Corpuscular Volume 87.1 fL (80-100); Platelet Count 191 X10^3/uL (150-400)
[2025-01-03 03:34] LABS: Culture Indicated Urine Cult Not Indicated
[2025-01-03 03:38] LABS: Alanine Aminotransferase 30 IU/L (<35); Albumin 4.2 g/dL (3.5-5.0); Albumin Globulin Ratio 1.4 (1.0-2.8); Alkaline Phosphatase 72 U/L (38-126); Blood Urea Nitrogen 22 mg/dL (7-17); Calcium 9.4 mg/dL (8.4-10.2); Carbon Dioxide 19 mmol/L (22-32); Chloride 104 mmol/L (98-107); Estimated Glomerular Filt Rate > 60 mL/min (>60); Globulin 3.1 g/dL (1.7-4.1); Glucose 156 mg/dL (70-99); HEMOLYSIS < 15 (0-50); Lipase 70 U/L (23-300); Potassium 4.0 mmol/L (3.4-5.1); Sodium 137 mmol/L (137-145); Total Protein 7.3 g/dL (6.3-8.2)
[2025-01-03 04:38] VITALS: BP 114/59; PULSE 96; RESP 18; O2SAT 94
== END 2025-01-03 04:52 | disposition home or self-care (01) ==
PROVIDERS: Emergency Provider Emergency Medicine; Family Provider Family Medicine; PCP Family Medicine
DX: N39.0 Urinary tract infection, site not specified (principal); N13.30 Unspecified hydronephrosis
CPT/HCPCS: 36415; 74176; 80053; 81003; 81015; 83690; 85025; 87077; 87086; 87186; 96365; 96375; 99284; J0696; J1171; J2405